=== PATIENT | male | born 1950 | race Caucasian/White ===

== ENCOUNTER 2017-01-29 06:27 | Emergency (ER) | payer BC, OTHER ==
[~2017-01-29] VITALS: Ht 188 cm; Wt 97.2 kg
[~2017-01-29 06:27] MED LIST: ADVIN10/60 INH; ALBU1AER9 INH; CZR50 PO; DICL1GEL28 TOP; DICL50TA3 PO; OMEP20TA74 PO; OXYC-57 PO; XRL20 PO
[2017-01-29 06:30] VITALS: Ht 188 cm; Wt 97.2 kg
[2017-01-29] MEDS ORDERED: METOCLOPRAMIDE HCL INJ 5 MG/ML 2 ML VIAL IV STA (06:39)
[2017-01-29] MEDS ORDERED: SODIUM CHLORIDE 0.9% 1000ML 1,000 ML IV STA (06:39)
[2017-01-29] MEDS ORDERED: HYDROmorphone INJ 0.5 MG/0.5 ML SYR IV STA (06:39)
--- NOTE | 2017-01-29 06:43 | EMERGENCY ROOM VISIT NOTE ---
History Report prepared by Stefani: Guillermo Ba Under the Supervision of: Dr. Kirk Webb M.D. First contact with patient: 06:33 Chief Complaint: GI ASSESSMENT Stated Complaint: COLON PROBLEMS History of Present Illness The patient is a 66 year old male who presents to the Emergency Room with complaints of persistent left lower quadrant abdominal pain. The pain is rated 5 /10 in severity, and radiates to the left testicle. The patient denies nausea or vomiting. He has been having problems with his bowels for the past 2-3 weeks , and notes that he has not had a bowel movement in 2-3 days. The patient was diagnosed with diverticulitis 4 years ago on colonoscopy. He notes that his symptoms now are similar to when he was diagnosed with diverticulitis. 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 Source of History: patient Onset: 2-3 weeks ago Position: abdomen (LLQ) Symptom Intensity: 5/10 Timing: other (persistent) Associated Symptoms: No nausea, No vomiting Review of Systems See HPI for pertinent positives & negatives. A total of 10 systems reviewed and were otherwise negative. Past Medical & Surgical Medical Problems: (1) Pulmonary emboli Surgical Problems: (1) History of back surgery Family History Hypertension Social History Smoking Status: Never Smoker Alcohol Use: none Drug Use: none Marital Status: Housing Status: lives with family Occupation Status: employed Current/Historical Medications Scheduled Albuterol Hfa (Ventolin Hfa), 1-2 PUFFS INH Q4-6H Aspirin (Aspirin Ec), 81 MG PO DAILY Atorvastatin (Lipitor), 40 MG PO HS Calcium Polycarbophil (Fibercon), Unknown Dose PO UD Diclofenac Sodium (Topical) (Voltaren 1% Top Gel), Unknown Dose TOP BID Fluticasone Prop/Salmeterol (Advair Diskus 100/50 60 Dose), 1 PUFF INH Q12 Losartan Potassium (Cozaar), 50 MG PO BID Omeprazole (Prilosec), 20 MG PO BID Scheduled PRN Oxycodone/Acetaminophen 5MG/325MG (Percocet 5MG/325MG), 1 TABLET PO BID PRN for Pain Allergies Coded Allergies: No Known Allergies (Verified , 01/29/17) Physical Exam Vital Signs Date Time Temp Pulse Resp B/P Pulse Ox O2 Delivery O2 Flow Rate FiO2 01/29/17 10:29 36.6 80 153/105 01/29/17 09:15 70 17 152/105 96 Room Air 01/29/17 08:15 67 17 153/96 100 Room Air 01/29/17 07:20 86 126/86 97 Room Air 01/29/17 07:14 63 01/29/17 06:30 37.1 75 16 159/108 98 Room Air Physical Exam GENERAL: Patient is a healthy-appearing well-nourished HEAD: Normocephalic atraumatic EYES: Ocular movements intact pupils equal and react to light OROPHARYNX mucous membranes are moist no exudates present no erythema or edema present NECK: Supple no nuchal rigidity CHEST: Good equal expansion LUNGS: Clear and equal to auscultation CARDIAC: Normal S1 and S2 ABDOMEN: Soft, mild left lower quadrant tenderness, no guarding. BACK: No CVA tenderness EXTREMITIES: No pain upon palpation normal muscle strength in all groups no clubbing cyanosis or edema NEURO: Patient is following commands is answering questions appropriately. Alert and oriented x3 Cranial Nerves 2-12 grossly intact Medical Decision & Procedures ER Provider Diagnostic Interpretation: CT results as stated below per my review and radiologist interpretation: CT ABD/PELVIS IV AND ORAL CONT CLINICAL HISTORY: Left lower quadrant abdominal pain COMPARISON STUDY: 10/27/2015 TECHNIQUE: Following the IV administration of 93 mL of Optiray-320, CT scan of the abdomen and pelvis was performed from the lung bases to the proximal femurs. Images are reviewed in the axial, sagittal, and coronal planes. IV contrast was administered without complication. CT DOSE: 696.18 mGy.cm FINDINGS: Lower chest: The heart is normal in size and configuration, without pericardial effusion. The lung bases and pleural spaces are clear. Liver: The contrast-enhanced liver is normal in size, contour, and attenuation. There is no intrahepatic biliary ductal dilatation. The hepatic veins and portal veins are patent. Gallbladder: Unremarkable. Spleen: Normal in size and attenuation. Pancreas: Unremarkable. Adrenal glands: Unremarkable. Kidneys: There is symmetric renal cortical enhancement. The kidneys are normal in size without hydronephrosis. Bowel: There is pancolonic diverticulosis. No acute peridiverticular inflammatory changes are visualized. There are no findings to indicate acute appendicitis. Peritoneum: There is no intraperitoneal free air or abdominal ascites. Vasculature: The abdominal aorta is normal in course and caliber. Adenopathy: None. Pelvic viscera: There are postsurgical changes are prior prostatectomy. Skeletal structures: Degenerative changes are present within the spine. There are multilevel disc bulges/protrusions. There is spinal stenosis most pronounced the L4-5 level. IMPRESSION: 1. No evidence of bowel obstruction. No evidence of free air 2. Diverticulosis. No evidence of acute diverticulitis 3. No evidence of acute appendicitis. Electronically signed by: Luis Bueno M.D. 01/29/2017 9:48 AM Dictated Date/Time: 01/29/2017 9:43 AM Laboratory Results 01/29/17 06:45 Red Blood Count 5.12, Mean Corpuscular Volume 88.3, Mean Corpuscular Hemoglobin 29.7, Mean Corpuscular Hemoglobin Concent 33.6, Mean Platelet Volume 9.4, Neutrophils (%) (Auto) 55.2, Lymphocytes (%) (Auto) 33.2, Monocytes (%) (Auto) 10.1, Eosinophils (%) (Auto) 1.0, Basophils (%) (Auto) 0.3, Neutrophils # (Auto ) 3.16, Lymphocytes # (Auto) 1.90, Monocytes # (Auto) 0.58, Eosinophils # (Auto ) 0.06, Basophils # (Auto) 0.02 01/29/17 06:45 Test 01/29/17 06:45 01/29/17 07:05 White Blood Count 5.73 K/uL (4.8-10.8) Red Blood Count 5.12 M/uL (4.7-6.1) Hemoglobin 15.2 g/dL (14.0-18.0) Hematocrit 45.2 % (42-52) Mean Corpuscular Volume 88.3 fL (80-100) Mean Corpuscular Hemoglobin 29.7 pg (25-34) Mean Corpuscular Hemoglobin Concent 33.6 g/dl (32-36) Platelet Count 301 K/uL (130-400) Mean Platelet Volume 9.4 fL (7.4-10.4) Neutrophils (%) (Auto) 55.2 % Lymphocytes (%) (Auto) 33.2 % Monocytes (%) (Auto) 10.1 % Eosinophils (%) (Auto) 1.0 % Basophils (%) (Auto) 0.3 % Neutrophils # (Auto) 3.16 K/uL (1.4-6.5) Lymphocytes # (Auto) 1.90 K/uL (1.2-3.4) Monocytes # (Auto) 0.58 K/uL (0.11-0.59) Eosinophils # (Auto) 0.06 K/uL (0-0.5) Basophils # (Auto) 0.02 K/uL (0-0.2) RDW Standard Deviation 46.0 fL (36.4-46.3) RDW Coefficient of Variation 14.1 % (11.5-14.5) Immature Granulocyte % (Auto) 0.2 % Immature Granulocyte # (Auto) 0.01 K/uL (0.00-0.02) Anion Gap 8.0 mmol/L (3-11) Est Creatinine Clear Calc Drug Dose 108.4 ml/min Estimated GFR () 109.2 Estimated GFR (Non- 94.2 BUN/Creatinine Ratio 16.3 (10-20) Calcium Level 8.8 mg/dl (8.5-10.1) Total Bilirubin 0.7 mg/dl (0.2-1) Direct Bilirubin 0.1 mg/dl (0-0.2) Aspartate Amino Transf (AST/SGOT) 19 U/L (15-37) Alanine Aminotransferase (ALT/SGPT) 25 U/L (12-78) Alkaline Phosphatase 94 U/L (45-117) Total Protein 7.4 gm/dl (6.4-8.2) Albumin 3.7 gm/dl (3.4-5.0) Lipase 129 U/L (73-393) Urine Color YELLOW Urine Appearance CLEAR (CLEAR) Urine pH 7.0 (4.5-7.5) Urine Specific Raymond 1.023 (1.000-1.030) Urine Protein NEG (NEG) Urine Glucose (UA) NEG (NEG) Urine Ketones NEG (NEG) Urine Occult Blood NEG (NEG) Urine Nitrite NEG (NEG) Urine Bilirubin NEG (NEG) Urine Urobilinogen NEG (NEG) Urine Leukocyte Esterase NEG (NEG) Labs reviewed by ED physician. Medications Administered Medications (Trade) Dose Ordered Sig/Julien Route Start Time Stop Time Status Last Admin Dose Admin Sodium Chloride (Nss 1000ml) 1,000 ml @ 999 mls/hr Q1H1M STAT IV 01/29/17 06:39 01/29/17 07:39 DC 3/21/17 06:45 999 MLS/HR Metoclopramide HCl (Reglan Inj) 10 mg NOW STAT IV 01/29/17 06:39 01/29/17 06:41 DC 01/29/17 06:45 10 MG Hydromorphone HCl (Dilaudid Inj) 0.5 mg NOW STAT IV 01/29/17 06:39 01/29/17 06:41 DC 01/29/17 06:45 0.5 MG ED Course 0635: Past medical records reviewed. The patient was evaluated in room B2. A complete history and physical examination was performed. 0639: Dilaudid 0.5 mg IV, Reglan 10 mg IV, NSS 1000 ml @ 999 mls/hr. 0756: Checked on the patient. He is doing well. 1025: Reassessed the patient. Discussed the findings with him. He verbalized understanding and agreement. The patient is ready for discharge. Medical Decision Differential diagnosis: Etiologies such as appendicitis, diverticulitis, PUD, biliary pathology, UTI, pancreatitis, obstruction, mesenteric ischemia, aortic pathology, infections, inflammatory bowel disease, renal colic, as well as others were entertained. This 66-year-old male who presents emergency department complaining of left lower quadrant abdominal pain. Patient has a normal CBC normal renal profile normal liver profile normal lipase. Serial abdominal examinations were performed on the patient in the emergency department and no tended patient exhibit a surgical abdomen. Using shared medical decision making, the patient requested a CAT scan of the abdomen and pelvis to rule out diverticulitis. There is no evidence of diverticulitis on his CAT scan. The patient is requesting medicine to help him move his bowels. I stressed MiraLAX as well as Gatorade. Patient is going to follow-up with his primary care physician and was in agreement with the treatment plan. He will return if he develops severe abdominal pain or fevers. In addition the patient was given bolus, Dilaudid and Reglan in the [facility] department repeat examination revealed improvement patient's symptoms. Impression Primary Impression: LLQ abdominal pain Scribe Attestation The scribe's documentation has been prepared under my direction and personally reviewed by me in its entirety. I confirm that the note above accurately reflects all work, treatment, procedures, and medical decision making performed by me. Departure Information Dispostion Home / Self-Care Referrals Griel,Jett C. III, YARD RIGGER (PCP) Forms HOME CARE DOCUMENTATION FORM, IMPORTANT VISIT INFORMATION, School Instructions, Work Instructions Patient Instructions ED Abd Pain Unkn Cause Male, ED Diverticulosis, My [facility] Additional Instructions Take 10 oz bottle of miralax; Add to 16 oz of gatorade Drink continuously until moving creamy stools Clear liquid diet for next 48 hours Return if you develop fevers or pain worsens You have been examined and treated today on an emergency basis only. This is not a substitute for, or an effort to provide, complete comprehensive medical care. It is impossible to recognize and treat all injuries or illnesses in a single emergency department visit. It is therefore important that you follow up closely with your PCP. Call as soon as possible for an appointment. Thank you for your time and consideration. I look forward to speaking with you again soon. Please don't hesitate to call us if you have any questions.
[2017-01-29 07:28] LABS: BASO % 0.3 %; BASO ABS # 0.02 K/uL (0-0.2); COMPLETE YES; HEMATOCRIT 45.2 % (42-52); IG% 0.2 %; LYMPH % 33.2 %; MEAN CELL VOLUME 88.3 fL (80-100); MEAN CORPUSCULAR HEMOGLOBIN 29.7 pg (25-34); MEAN CORPUSCULAR HGB CONC 33.6 g/dl (32-36); MEAN PLATELET VOLUME 9.4 fL (7.4-10.4); MONO % 10.1 %; NEUT % 55.2 %; PLATELET COUNT 301 K/uL (130-400); RED BLOOD COUNT 5.12 M/uL (4.7-6.1); WHITE BLOOD COUNT 5.73 K/uL (4.8-10.8)
[2017-01-29] MEDS ORDERED: PRLSR20 PO (07:34)
[2017-01-29] MEDS ORDERED: OXYC-57 PO (07:34)
[2017-01-29] MEDS ORDERED: VNTHFA/IN INH (07:34)
[2017-01-29] MEDS ORDERED: ASPI81TA28 PO (07:34)
[2017-01-29] MEDS ORDERED: DICL1GEL12 TOP (07:34)
[2017-01-29] MEDS ORDERED: CALC625T PO (07:34)
[2017-01-29] MEDS ORDERED: LOSA50TA6 PO (07:34)
[2017-01-29] MEDS ORDERED: ATOR-24 PO (07:34)
[2017-01-29] MEDS ORDERED: ADVIN10/60 INH (07:34)
[2017-01-29 07:44] LABS: URINE APPEARANCE CLEAR (CLEAR); URINE BILIRUBIN NEG (NEG); URINE COLOR YELLOW; URINE NITRITE NEG (NEG); URINE SPECIFIC GRAVITY 1.023 (1.000-1.030); UROBILINOGEN NEG (NEG)
[2017-01-29 07:51] LABS: MANUAL MICROSCOPIC REQUIRED? NO; REVIEW REQ? NO
[2017-01-29 07:53] LABS: BUN/CREATININE RATIO 16.3 (10-20); CALCIUM 8.8 mg/dl (8.5-10.1); CREATININE 0.79 mg/dl (0.60-1.40)
[2017-01-29 09:15] VITALS: O2SAT 96
[2017-01-29] MEDS ORDERED: OPTIRAY 320 IV PRN (09:45)
--- NOTE | 2017-01-29 09:49 | DIAGNOSTIC IMAGING REPORT ---
CT ABD/PELVIS IV AND ORAL CONT CLINICAL HISTORY: Left lower quadrant abdominal pain COMPARISON STUDY: 10/27/2015 TECHNIQUE: Following the IV administration of 93 mL of Optiray-320, CT scan of the abdomen and pelvis was performed from the lung bases to the proximal femurs. Images are reviewed in the axial, sagittal, and coronal planes. IV contrast was administered without complication. CT DOSE: 696.18 mGy.cm FINDINGS: Lower chest: The heart is normal in size and configuration, without pericardial effusion. The lung bases and pleural spaces are clear. Liver: The contrast-enhanced liver is normal in size, contour, and attenuation. There is no intrahepatic biliary ductal dilatation. The hepatic veins and portal veins are patent. Gallbladder: Unremarkable. Spleen: Normal in size and attenuation. Pancreas: Unremarkable. Adrenal glands: Unremarkable. Kidneys: There is symmetric renal cortical enhancement. The kidneys are normal in size without hydronephrosis. Bowel: There is pancolonic diverticulosis. No acute peridiverticular inflammatory changes are visualized. There are no findings to indicate acute appendicitis. Peritoneum: There is no intraperitoneal free air or abdominal ascites. Vasculature: The abdominal aorta is normal in course and caliber. Adenopathy: None. Pelvic viscera: There are postsurgical changes are prior prostatectomy. Skeletal structures: Degenerative changes are present within the spine. There are multilevel disc bulges/protrusions. There is spinal stenosis most pronounced the L4-5 level. IMPRESSION: 1. No evidence of bowel obstruction. No evidence of free air 2. Diverticulosis. No evidence of acute diverticulitis 3. No evidence of acute appendicitis. Electronically signed by: Luis Bueno M.D. 01/29/2017 9:48 AM Dictated Date/Time: 01/29/2017 9:43 AM
[2017-01-29 10:29] VITALS: BP 153/105; PULSE 80; TEMP 36.6
== END 2017-01-29 10:40 | disposition home or self-care (01) ==
LOC: C.EDB 06:28
DX: R10.32 Left lower quadrant pain (principal); Z79.82 Long term (current) use of aspirin; Z86.711 Personal history of pulmonary embolism; Z82.49 Family history of ischemic heart disease and other diseases of the circulatory system; K57.30 Diverticulosis of large intestine without perforation or abscess without bleeding

== ENCOUNTER → 2017-02-19 | Outpatient (CLI) | payer BC ==
[~2017-02-19] MED LIST changes: -ALBU1AER9 INH; +ASPI81TA28 PO; +ATOR-24 PO; +CALC625T PO; +CYCL5TAB PO; -CZR50 PO; +DICL1GEL12 TOP; -DICL1GEL28 TOP; -DICL50TA3 PO; +HYDR-5688 PO; +LOSA50TA6 PO; -OMEP20TA74 PO; +PRLSR20 PO; +VNTHFA/IN INH; -XRL20 PO
[2017-02-19 09:46] LABS: BASO % 0.5 %; BASO ABS # 0.03 K/uL (0-0.2); COMPLETE YES; EOS % 0.9 %; IG% 0.2 %; LYMPH % 40.6 %; LYMPH ABS # 2.32 K/uL (1.2-3.4); MEAN CELL VOLUME 86.1 fL (80-100); MEAN CORPUSCULAR HEMOGLOBIN 29.1 pg (25-34); MEAN CORPUSCULAR HGB CONC 33.8 g/dl (32-36); MONO % 6.1 %; NEUT % 51.7 %; PLATELET COUNT 374 K/uL (130-400); RED BLOOD COUNT 4.88 M/uL (4.7-6.1); WHITE BLOOD COUNT 5.71 K/uL (4.8-10.8)
[2017-02-19 10:01] LABS: ALT/SGPT 20 U/L (12-78); AST/SGOT 15 U/L (15-37); BLOOD UREA NITROGEN 15 mg/dl (7-18); BUN/CREATININE RATIO 17.2 (10-20); CALCIUM 8.6 mg/dl (8.5-10.1); CARBON DIOXIDE 27 mmol/L (21-32); CHLORIDE 107 mmol/L (98-107); CHOLESTEROL 122 mg/dl (0-200); CREATININE 0.87 mg/dl (0.60-1.40); GLUCOSE 95 mg/dl (70-99); SODIUM 141 mmol/L (136-145); TRIGLYCERIDES 64 mg/dl (0-150); VERY LOW DENSITY LIPOPROT CALC 13 mg/dl
[2017-02-19 10:04] LABS: ALB/GLOB RATIO 0.8 (0.9-2); ALKALINE PHOSPHATASE 90 U/L (45-117); CHOLESTEROL/HDL RATIO 2.3; HDL CHOLESTEROL 53 mg/dl; LDL CHOLESTEROL CALCULATED 56 mg/dl
== END | disposition home or self-care (01) ==
LOC: C.LAB1850 07:47
PROVIDERS: ATTEND Nurse Practitioner Family
DX: K21.9 Gastro-esophageal reflux disease without esophagitis (principal); I10 Essential (primary) hypertension; I65.29 Occlusion and stenosis of unspecified carotid artery

== ENCOUNTER 2017-05-07 11:42 | Emergency (ER) | payer BC ==
[~2017-05-07] VITALS: Ht 188 cm; Wt 94.3 kg
[~2017-05-07 11:42] MED LIST changes: -CYCL5TAB PO; -HYDR-5688 PO
[2017-05-07 11:49] VITALS: TEMP 36.8; Ht 188 cm; Wt 94.3 kg
[2017-05-07] MEDS ORDERED: ASPI81TA28 PO (12:35)
[2017-05-07 12:45] LABS: BASO % 0.3 %; BASO ABS # 0.02 K/uL (0-0.2); COMPLETE YES; EOS % 1.1 %; HEMATOCRIT 45.9 % (42-52); IG% 0.2 %; LYMPH % 32.8 %; LYMPH ABS # 2.16 K/uL (1.2-3.4); MEAN CELL VOLUME 88.8 fL (80-100); MEAN CORPUSCULAR HEMOGLOBIN 29.2 pg (25-34); MEAN CORPUSCULAR HGB CONC 32.9 g/dl (32-36); MEAN PLATELET VOLUME 9.2 fL (7.4-10.4); MONO % 8.5 %; NEUT % 57.1 %; PLATELET COUNT 315 K/uL (130-400); RED BLOOD COUNT 5.17 M/uL (4.7-6.1); WHITE BLOOD COUNT 6.59 K/uL (4.8-10.8)
[2017-05-07 12:57] LABS: ALT/SGPT 20 U/L (12-78); BLOOD UREA NITROGEN 19 mg/dl (7-18); BUN/CREATININE RATIO 20.5 (10-20); CALCIUM 8.6 mg/dl (8.5-10.1); CARBON DIOXIDE 27 mmol/L (21-32); CHLORIDE 108 mmol/L (98-107); CREATININE 0.93 mg/dl (0.60-1.40); GLUCOSE 101 mg/dl (70-99); POTASSIUM 4.9 mmol/L (3.5-5.1); SODIUM 141 mmol/L (136-145)
[2017-05-07 13:02] LABS: ALB/GLOB RATIO 0.9 (0.9-2); ALKALINE PHOSPHATASE 90 U/L (45-117); AST/SGOT 17 U/L (15-37); CKMB/CK RATIO 1.5 (0-3.0)
--- NOTE | 2017-05-07 13:16 | DIAGNOSTIC IMAGING REPORT ---
CHEST ONE VIEW PORTABLE HISTORY: EVALUATE RESPIRATORY DISTRESS.DYSPNEA COMPARISON: Chest 04/24/2016. FINDINGS: The lungs are clear. Cardiac silhouette is normal in size. No pleural effusions. No pneumothorax. IMPRESSION: No acute process. Electronically signed by: John Aponte M.D. 05/07/2017 1:15 PM Dictated Date/Time: 05/07/2017 1:14 PM
[2017-05-07] MEDS ORDERED: OPTIRAY 320 IV PRN (13:30)
--- NOTE | 2017-05-07 13:52 | DIAGNOSTIC IMAGING REPORT ---
CT ANGIOGRAM OF THE CHEST CLINICAL HISTORY: Cough and dyspnea. COMPARISON STUDY: Chest x-ray dated 05/07/2017. Chest CT scans dated 03/16/2016 and 02/01/2014. TECHNIQUE: Following the IV administration of 94 cc of Optiray 320, CT angiogram of the chest was performed from the upper abdomen to the thoracic inlet utilizing the pulmonary embolus protocol. Images are reviewed in the axial, sagittal, and coronal planes. 3-D MIPS images are created and assessed. IV contrast was administered without complication. CT DOSE: 577.51 mGycm FINDINGS: Thyroid: Imaged portions of the thyroid gland are normal in size and attenuation. Thoracic aorta: There is minimal atherosclerotic calcification of the thoracic aorta, which is normal in caliber and demonstrates standard 3-vessel arch anatomy. No dissection is seen. Pulmonary vasculature: The main pulmonary arteries are mildly dilated suggesting pulmonary artery hypertension. There are no filling defects identified in main, lobar, or segmental pulmonary branches to suggest pulmonary embolus. Heart: The heart is enlarged and without pericardial effusion. Lungs and pleural spaces: The lungs and pleural spaces are clear noting dependent atelectasis. The trachea and central airways are patent. Mediastinum: There is no mediastinal lymphadenopathy. Nenita: Clear. Axillae: There is no axillary lymphadenopathy. Upper abdomen: There is a small hiatal hernia. Partially visualized upper abdominal viscera is otherwise within normal limits. Skeletal structures: Skeletal structures are osteopenic. No lytic or blastic bony lesions are seen. Degenerative change is noted in the thoracic spine and shoulders. IMPRESSION: 1. There is no evidence of pulmonary embolus in the main, lobar, or segmental pulmonary arteries. 2. Cardiomegaly. 3. There is no airspace consolidation or pleural effusion. Electronically signed by: Vitor Ochoa M.D. 05/07/2017 1:51 PM Dictated Date/Time: 05/07/2017 1:46 PM
[2017-05-07 13:57] VITALS: BP 149/98; PULSE 71; O2SAT 98
--- NOTE | 2017-05-07 18:00 | EMERGENCY ROOM VISIT NOTE ---
History Report prepared by Stefani: Sherrie Salvador Under the Supervision of: Dr. Scott Melara M.D. First contact with patient: 11:53 Chief Complaint: COUGH Stated Complaint: CONSTANT COUGHING Nursing Triage Summary: Pt c/o coughing a lot for the last 2.5 week. Hx pneumonia and fluid in lungs due to a blood clot so he would like some xrays. Denies use of blood thinners. History of Present Illness The patient is a 66 year old male who presents to the Emergency Room with complaints of a constant cough beginning 2.5 weeks prior to arrival. He states that laying on his left side worsens the cough. The patient has a history of a pleural effusion from a blood clot and pneumonia about a year ago. He states that the fluid was drained from his left side. The cough he is experiencing is similar to when he had the pleural effusion. The patient is not on blood thinners. Pt denies LOC, headache, fevers, chills, diaphoresis, visual changes, neck pain, chest pain, breathing difficulties, pain with breathing, nausea, vomiting, abdominal pain, back pain, melena, hematochezia, urinary symptoms, numbness, weakness, lymphadenopathy, rash, recent surgeries or other complaints. 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 A total of ten systems were reviewed and were otherwise negative. Past Medical & Surgical Medical Problems: (1) Pleural effusion, left (2) Pneumonia (3) Pulmonary emboli Surgical Problems: (1) History of back surgery (2) S/P thoracentesis Family History Hypertension Social History Smoking Status: Never Smoker Alcohol Use: none Drug Use: none Marital Status: Housing Status: lives with family Occupation Status: employed Current/Historical Medications Scheduled Aspirin (Aspirin Ec), 81 MG PO DAILY Atorvastatin (Lipitor), 40 MG PO HS Losartan Potassium (Cozaar), 50 MG PO BID Omeprazole (Prilosec), 20 MG PO BID Scheduled PRN Oxycodone/Acetaminophen 5MG/325MG (Percocet 5MG/325MG), 1 TABLET PO BID PRN for Pain Allergies Coded Allergies: No Known Allergies (Verified , 05/07/17) Physical Exam Vital Signs Date Time Temp Pulse Resp B/P (MAP) Pulse Ox O2 Delivery O2 Flow Rate FiO2 05/07/17 13:57 71 20 149/98 98 Room Air 05/07/17 13:27 75 18 165/97 98 Room Air 05/07/17 12:32 72 05/07/17 11:52 96 Room Air 05/07/17 11:49 36.8 85 18 148/93 96 Room Air Physical Exam GENERAL: Awake, alert, well-appearing, in no distress HENT: Normocephalic, atraumatic. Oropharynx unremarkable. EYES: Normal conjunctiva. Sclera non-icteric. NECK: Supple. No nuchal rigidity. FROM. No JVD. RESPIRATORY: Clear to auscultation. CARDIAC: Regular rate, normal rhythm. Extremities warm and well perfused. Pulses equal. ABDOMEN: Soft, non-distended. No tenderness to palpation. No rebound or guarding. No masses. RECTAL: Deferred. MUSCULOSKELETAL: Chest examination reveals no tenderness. The back is symmetrical on inspection without obvious abnormality. There is no CVA tenderness to palpation. No joint edema. LOWER EXTREMITIES: Calves are equal size bilaterally and non-tender. No edema. No discoloration. NEURO: Normal sensorium. No sensory or motor deficits noted. SKIN: No rash or jaundice noted. Medical Decision & Procedures ER Provider Diagnostic Interpretation: X-ray: Per my interpretation, radiologist review. CHEST ONE VIEW PORTABLE HISTORY: EVALUATE RESPIRATORY DISTRESS.DYSPNEA COMPARISON: Chest 04/24/2016. FINDINGS: The lungs are clear. Cardiac silhouette is normal in size. No pleural effusions. No pneumothorax. IMPRESSION: No acute process. Electronically signed by: John Aponte M.D. 05/07/2017 1:15 PM Dictated Date/Time: 05/07/2017 1:14 PM Laboratory Results 05/07/17 12:14 Red Blood Count 5.17, Mean Corpuscular Volume 88.8, Mean Corpuscular Hemoglobin 29.2, Mean Corpuscular Hemoglobin Concent 32.9, Mean Platelet Volume 9.2, Neutrophils (%) (Auto) 57.1, Lymphocytes (%) (Auto) 32.8, Monocytes (%) (Auto) 8.5, Eosinophils (%) (Auto) 1.1, Basophils (%) (Auto) 0.3, Neutrophils # (Auto) 3.77, Lymphocytes # (Auto) 2.16, Monocytes # (Auto) 0.56, Eosinophils # (Auto) 0.07, Basophils # (Auto) 0.02 05/07/17 12:14 Test 05/07/17 12:14 05/07/17 12:25 White Blood Count 6.59 K/uL (4.8-10.8) Red Blood Count 5.17 M/uL (4.7-6.1) Hemoglobin 15.1 g/dL (14.0-18.0) Hematocrit 45.9 % (42-52) Mean Corpuscular Volume 88.8 fL (80-100) Mean Corpuscular Hemoglobin 29.2 pg (25-34) Mean Corpuscular Hemoglobin Concent 32.9 g/dl (32-36) Platelet Count 315 K/uL (130-400) Mean Platelet Volume 9.2 fL (7.4-10.4) Neutrophils (%) (Auto) 57.1 % Lymphocytes (%) (Auto) 32.8 % Monocytes (%) (Auto) 8.5 % Eosinophils (%) (Auto) 1.1 % Basophils (%) (Auto) 0.3 % Neutrophils # (Auto) 3.77 K/uL (1.4-6.5) Lymphocytes # (Auto) 2.16 K/uL (1.2-3.4) Monocytes # (Auto) 0.56 K/uL (0.11-0.59) Eosinophils # (Auto) 0.07 K/uL (0-0.5) Basophils # (Auto) 0.02 K/uL (0-0.2) RDW Standard Deviation 44.5 fL (36.4-46.3) RDW Coefficient of Variation 13.5 % (11.5-14.5) Immature Granulocyte % (Auto) 0.2 % Immature Granulocyte # (Auto) 0.01 K/uL (0.00-0.02) Anion Gap 6.0 mmol/L (3-11) Est Creatinine Clear Calc Drug Dose 92.1 ml/min Estimated GFR () 99.5 Estimated GFR (Non- 85.8 BUN/Creatinine Ratio 20.5 (10-20) Calcium Level 8.6 mg/dl (8.5-10.1) Total Bilirubin 0.3 mg/dl (0.2-1) Aspartate Amino Transf (AST/SGOT) 17 U/L (15-37) Alanine Aminotransferase (ALT/SGPT) 20 U/L (12-78) Alkaline Phosphatase 90 U/L (45-117) Total Creatine Kinase 97 U/L (39-308) Creatine Kinase MB 1.5 ng/ml (0.5-3.6) Creatine Kinase MB Ratio 1.5 (0-3.0) Troponin I < 0.015 ng/ml (0-0.045) Total Protein 7.3 gm/dl (6.4-8.2) Albumin 3.4 gm/dl (3.4-5.0) Globulin 3.9 gm/dl (2.5-4.0) Albumin/Globulin Ratio 0.9 (0.9-2) Bedside D-Dimer > 450 ng/mlFEU (0-450) Laboratory results reviewed by me ECG Indication: other (cough) Rate (beats per minute): 72 Rhythm: normal sinus Findings: no acute ischemic change, no ectopy, other (inferior Q wave, poor R wave progression ) ED Course 1159: The patient was evaluated in room B5. A complete history and physical exam was performed. 1326: I reevaluated the patient. 1418: I discussed test results with the patient. 1447: I reevaluated the patient. Discussed results and discharge instructions: He verbalized understanding and agreement. The patient is ready for discharge. Medical Decision Medication Reconciliation: I attest that I have personally reviewed the patient' s current medication list Blood pressure screening: Patient was found to have an elevated blood pressure and was referred to their primary doctor for recheck and further treatment. Triage Nursing notes reviewed. The patient's presentation and history were concerning for cough and pulmonary symptoms. Etiologies such as pneumonia, pleural effusion, COPD, reactive airway disease, CHF, cardiac ischemia, pulmonary embolism, pneumothorax, musculoskeletal, infections, gastrointestinal, as well as others were entertained. The patient was evaluated. Clinically he was doing well. His ECG was unremarkable. Chest x-ray did not reveal any acute findings. His CBC, chemistry panel, cardiac markers and LFTs were unremarkable. The patient had a positive d-dimer. Because of this and his history he was sent for CT imaging. This did not reveal any evidence of pulmonary embolism or pleural effusion. No significant abnormalities were noted. The patient is currently taken an ARB because his CARMEN inhibitor was causing a cough. The patient hasn't this seems to be more of a problem at night. He does not have any reflux-like symptoms. He has previously used an inhaler without success and has this at home. I advised him to use this to watch his symptoms closely. He will need of close outpatient follow-up with his primary office. The patient was in agreement. I asked if I could schedule his appointment however the patient wishes to do this on his own. By the evaluation outlined above other emergent etiologies such as those listed in the differential, as well as others, were deemed relatively unlikely. The patient was educated about the findings as listed above. All questions were answered and the patient was pleased with the treatment. Return instructions were outlined and the patient was discharged in stable condition. The patient was referred to his PCP this week for follow-up for a recheck of the current condition. Impression Primary Impression: Cough Additional Impression: History of pleural effusion Scribe Attestation The scribe's documentation has been prepared under my direction and personally reviewed by me in its entirety. I confirm that the note above accurately reflects all work, treatment, procedures, and medical decision making performed by me. Departure Information Dispostion Home / Self-Care Referrals No Doctor, Assigned (PCP) Forms HOME CARE DOCUMENTATION FORM, IMPORTANT VISIT INFORMATION Patient Instructions My [facility] Additional Instructions Continue current medications. Use your inhaler as discussed. Follow-up with the primary office. Call tomorrow to set up an appointment. Have your primary evaluate your blood pressure and blood pressure medications. Return to the ER for worsening cough, chest pain, difficulty breathing, fevers, vomiting, worsening of your condition, or as needed. Problem Qualifiers
[2017-08-19] MEDS ORDERED: OXYC-57 PO (11:42)
[2017-08-19] MEDS ORDERED: ADVIN10/60 INH (11:42)
== END 2017-05-07 14:51 | disposition home or self-care (01) ==
LOC: C.EDB 11:44
DX: R05 Cough (principal); Z86.711 Personal history of pulmonary embolism; Z98.890 Other specified postprocedural states; Z88.2 Allergy status to sulfonamides; Z79.899 Other long term (current) drug therapy; Z82.49 Family history of ischemic heart disease and other diseases of the circulatory system

== ENCOUNTER → 2017-08-26 | Day surgery (SDC) | payer BC ==
[2017-08-19 11:42] VITALS: Ht 188 cm; Wt 93.2 kg
[~2017-08-26] VITALS: Ht 188 cm; Wt 93.2 kg
[~2017-08-26] MED LIST changes: +ATROPINE SULFATE 0.1 MG/ML 5ML SYR IV PRN; -CALC625T PO; -DICL1GEL12 TOP; +EpHEDrine SULFATE INJ 50 MG/ML AMP IV PRN; +LIDOCAINE HCL 2% 2 ML VIAL (20MG/ML) ONE; +MIDAZOLAM HCL 1 MG/ML 2ML VIAL ONE; +ONDANSETRON INJ 2 MG/ML 2 ML VIAL ONE; +PROPOFOL IV EMULSION 10 MG/ML 20 ML VIAL IV ONE; +SODIUM CHLORIDE 0.9% 500ML 500 ML IV ONE; -VNTHFA/IN INH
--- NOTE | 2017-08-26 11:21 | Endo History and Physical ---
History & Physical Date of Service: Aug 26, 2017. Chief Complaint: GERD Referring Physician: MCKENNA DALLAS History of Present Illness 66 yo CM who presents for EGD secondary to GERD. Past Medical History Arthritis, Reflux, Hypertension Past Surgical History Hx Cardiac Surgery: No Hx Internal Defibrillator: No Hx Pacemaker: No Hx Abdominal Surgery: No Hx of Implantable Prosthesis: No Hx Post-Op Nausea and Vomiting: No Hx Cancer Surgery: Yes (TOTAL PROSTATECTOMY) Hx Thoracic Surgery: No Hx Orthopedic: Yes (RT RCR) Hx Urinary Tract Surgery: No Family History None Social History Smoking Status: Never Smoker Hx Substance Use: No Hx Alcohol Use: Yes (30 PACK/WEEK BEER) Allergies Coded Allergies: No Known Allergies (Verified , 08/19/17) Current Medications Reported Home Medications Medications Dose Route/Sig Max Daily Dose Days Date Category Dose Instructions Percocet 5MG/325MG (Oxycodone/Acetaminophen) Tab 1 Tablet PO BID PRN 08/19/17 Reported PAIN Advair Diskus 100/50 60 Dose (Fluticasone Prop/Salmeterol) 1 Ea Aerp 1 Puff INH BID PRN 08/19/17 Reported Aspirin Ec (Aspirin) 81 Mg Tab 81 Mg PO QAM 01/29/17 Reported Prilosec (Omeprazole) 20 Mg Capcr 20 Mg PO BID 01/29/17 Reported Cozaar (Losartan Potassium) 50 Mg Tab 50 Mg PO BID 01/29/17 Reported Lipitor (Atorvastatin Calcium) 40 Mg Tab 40 Mg PO HS 01/29/17 Reported Vital Signs Weight (Kilograms): 93.18 Height (Feet): 6 Height (Inches): 2 Date Time Temp Pulse Resp B/P (MAP) Pulse Ox O2 Delivery O2 Flow Rate FiO2 08/26/17 10:58 36.4 67 12 142/86 (104) 98 Room Air Physical Exam General Appearance: WD/WN, no apparent distress Respiratory/Chest: Auscultation: breath sounds normal Cardiovascular: Heart Auscultation: RRR Abdomen: Bowel Sounds: normal Inspection & Palpation: soft, non-distended, no tenderness, guarding & rebound Assessment and Plan Assessment: 66 yo CM who presents for EGD secondary to GERD. Plan: Proceed with EGD.
--- NOTE | 2017-08-26 12:06 | GI REPORT ---
Procedure Date: 08/26/2017 11:29 AM Procedure: Upper GI endoscopy Indications: Gastro-esophageal reflux disease Medicines: Monitored Anesthesia Care Complications: No immediate complications. Estimated Blood Loss: Estimated blood loss: none. Procedure: Pre-Anesthesia Assessment: - Prior to the procedure, a History and Physical was performed, and patient medications and allergies were reviewed. The patient's tolerance of previous anesthesia was also reviewed. The risks and benefits of the procedure and the sedation options and risks were discussed with the patient. All questions were answered, and informed consent was obtained. Prior Anticoagulants: The patient has taken aspirin, last dose was 1 day prior to procedure. ASA Grade Assessment: II - A patient with mild systemic disease. After reviewing the risks and benefits, the patient was deemed in satisfactory condition to undergo the procedure. After obtaining informed consent, the endoscope was passed under direct vision. Throughout the procedure, the patient's blood pressure, pulse, and oxygen saturations were monitored continuously. The On-site loaner was introduced through the mouth, and advanced to the second part of duodenum. The upper GI endoscopy was accomplished without difficulty. The patient tolerated the procedure well. Findings: The Z-line was irregular. Biopsies were taken with a cold forceps for histology. A small hiatus hernia was present. The examined duodenum was normal. Impression: - Z-line irregular. Biopsied. - Small hiatus hernia. - Normal examined duodenum. Recommendation: - Resume previous diet. - Continue present medications. - Await pathology results. - Return to primary care physician as previously scheduled. Justin Vargas DO 08/26/2017 12:06:13 PM This report has been signed electronically. Note Initiated On: 08/26/2017 11:29 AM I attest to the content of the Intraoperative Record and orders documented therein, exceptions below
--- NOTE | 2017-08-26 12:10 | Discharge Instructions ---
Endoscopy Patient Instructions Date / Procedure(s) Performed Aug 26, 2017. EGD Allergy Information Coded Allergies: No Known Allergies (Verified , 08/19/17) Discharge Date / Findings Aug 26, 2017. Distal esophageal biopsies Hiatal hernia Medication Instructions Stopped Medication(s): ASPIRIN 81MG 08/25/17 OK to resume all medications today as prescribed Reported Home Medications Medications Dose Route/Sig Max Daily Dose Days Date Category Dose Instructions Percocet 5MG/325MG (Oxycodone/Acetaminophen) Tab 1 Tablet PO BID PRN 08/19/17 Reported PAIN Advair Diskus 100/50 60 Dose (Fluticasone Prop/Salmeterol) 1 Ea Aerp 1 Puff INH BID PRN 08/19/17 Reported Aspirin Ec (Aspirin) 81 Mg Tab 81 Mg PO QAM 01/29/17 Reported Prilosec (Omeprazole) 20 Mg Capcr 20 Mg PO BID 01/29/17 Reported Cozaar (Losartan Potassium) 50 Mg Tab 50 Mg PO BID 01/29/17 Reported Lipitor (Atorvastatin Calcium) 40 Mg Tab 40 Mg PO HS 01/29/17 Reported Provider Instructions Activity Restrictions - No exercising or heavy lifting for 24 hours. - Do not drink alcohol the day of the procedure. - Do not drive a car or operate machinery until the day after the procedure. - Do not make any important decisions or sign important papers in 24 hours after the procedure. Following Day: - Return to full activity which may include returning to work/school. Diet Start your diet with liquids and light foods (jello, soup, juice, toast). Then eat your usual diet if not nauseated. Treatment For Common After Affects For mild abdominal pain, bloating, or excessive gas: - Rest - Eat lightly - Lie on right side Follow-Up Information Follow-up with MCKENNA DALLAS as scheduled Anesthesia Information What You Should Know You have had a procedure that required some medicine to reduce anxiety and discomfort. This treatment is called moderate sedation. After receiving the treatment, you may be sleepy, but you will be able to breathe on your own. The effects of the treatment may last for several hours. Follow these instructions along with Activity/Diet recommendations noted above: * Do NOT do anything where dizziness or clumsiness would be dangerous. * Rest quietly at home today, then you can be up and about tomorrow. * Have a responsible person stay with you the rest of today. * You may have had an I.V. today. If so, you may take the dressing off later today. Recommendations Call your doctor if: * Trouble breathing * Continuous vomiting for more than 24 hours * Temperature above 101 degrees * Severe abdominal pain or bloating * Pain not relieved by pain medicine ordered * There is increased drainage or redness from any incision * A large amount of rectal bleeding greater than 2-3 tablespoons. (If you had a polyp/s removed or have hemorrhoids, a small amount of blood - from the rectum is to be expected.) * You have any unanswered questions or concerns. IN THE EVENT OF A SERIOUS EMERGENCY, GO TO THE NEAREST EMERGENCY ROOM Your discharge instructions were prepared by provider Justin Vargas. Patient Instructions Signature Page Gopal Aponte Patient (or Guardian) Signature/Date: I have read and understand the instructions given to me by my caregivers. Caregiver/RN/Doctor Signature/Date: The above-named patient and/or guardian has received patient instructions on this date. + Original Patient Signature Page (only) stays with chart. Please make copy for patient.
--- NOTE | 2017-08-26 12:21 | Anesthesiology Progress Note ---
Anesthesia Post Op Note Date & Time Aug 26, 2017 at 12:21 Vital Signs Pain Intensity: 0 Vital Signs Past 12 Hours Date Time Temp Pulse Resp B/P (MAP) Pulse Ox O2 Delivery O2 Flow Rate FiO2 08/26/17 12:18 78 20 142/90 (107) 98 Room Air 08/26/17 12:02 67 12 134/88 (103) 98 Room Air 08/26/17 10:58 36.4 67 12 142/86 (104) 98 Room Air Notes Mental Status: alert / awake / arousable, participated in evaluation Pt Amnestic to Procedure: Yes Nausea / Vomiting: adequately controlled Pain: adequately controlled Airway Patency, RR, SpO2: stable & adequate BP & HR: stable & adequate Hydration State: stable & adequate Anesthetic Complications: no major complications apparent
[2017-08-26 12:33] VITALS: BP 148/78; PULSE 72; O2SAT 98
== END | disposition home or self-care (01) ==
LOC: C.GI 10:43
PROVIDERS: ATTEND Internal Medicine
DX: K21.9 Gastro-esophageal reflux disease without esophagitis (principal); K31.89 Other diseases of stomach and duodenum; K44.9 Diaphragmatic hernia without obstruction or gangrene; I10 Essential (primary) hypertension; Z86.718 Personal history of other venous thrombosis and embolism; Z68.26 Body mass index [BMI] 26.0-26.9, adult; Z90.89 Acquired absence of other organs; Z98.890 Other specified postprocedural states; Z79.82 Long term (current) use of aspirin

== ENCOUNTER 2017-09-01 07:39 | Emergency (ER) | payer BC ==
[~2017-09-01] VITALS: Ht 185.4 cm; Wt 93.6 kg
[~2017-09-01 07:39] MED LIST changes: -ATROPINE SULFATE 0.1 MG/ML 5ML SYR IV PRN; -EpHEDrine SULFATE INJ 50 MG/ML AMP IV PRN; -LIDOCAINE HCL 2% 2 ML VIAL (20MG/ML) ONE; -MIDAZOLAM HCL 1 MG/ML 2ML VIAL ONE; -ONDANSETRON INJ 2 MG/ML 2 ML VIAL ONE; -PROPOFOL IV EMULSION 10 MG/ML 20 ML VIAL IV ONE; -SODIUM CHLORIDE 0.9% 500ML 500 ML IV ONE
[2017-09-01 07:45] VITALS: TEMP 36.9; Ht 185.4 cm; Wt 93.6 kg
--- NOTE | 2017-09-01 08:16 | EMERGENCY ROOM VISIT NOTE ---
History Report prepared by Stefani: Winston Marie Under the Supervision of: Dr. Pam Bonilla M.D. First contact with patient: 07:50 Chief Complaint: TESTICULAR PAIN Stated Complaint: PAIN IN LEFT LEG AND TESTICLE History of Present Illness The patient is a 66 year old male who presents to the Emergency Room with complaints of constant severe left testicular pain beginning a few days ago. The patient states that he is also experiencing pain at the joint between his hip and the inside of his left leg. He notes that he is unable to walk or raise his leg without pain. He denies any blood in his urine, fever, abdominal pain, or bumps, redness, and swelling to his testicle. The patient states that he has not experienced any recent injury to the testicle but has a history of prostate cancer. He notes that his prostate cancer was removed and that it did not metastasize. He reports that he also has a history of a hernia. Source of History: patient Onset: a few days ago Position: other (left testicle) Symptom Intensity: severe Timing: constant Modifying Factors (Worsening): movement Associated Symptoms: No fevers, No abdominal pain, No urinary symptoms Note: he denies any bumps, redness, and swelling to the left testicle Review of Systems See HPI for pertinent positives & negatives. A total of 10 systems reviewed and were otherwise negative. Past Medical & Surgical Medical Problems: (1) Pleural effusion, left (2) Pneumonia (3) Pulmonary emboli Surgical Problems: (1) History of back surgery (2) S/P thoracentesis Family History Hypertension Social History Smoking Status: Never Smoker Alcohol Use: none Drug Use: none Marital Status: Housing Status: lives with family Occupation Status: employed Current/Historical Medications Scheduled Aspirin (Aspirin Ec), 81 MG PO QAM Atorvastatin (Lipitor), 40 MG PO HS Losartan Potassium (Cozaar), 50 MG PO BID Omeprazole (Prilosec), 20 MG PO BID Scheduled PRN Cyclobenzaprine Hcl (Flexeril), 5 MG PO TID PRN for Muscle Spasms Fluticasone Prop/Salmeterol (Advair Diskus 100/50 60 Dose), 1 PUFF INH BID PRN for Shortness of Breath Hydrocodone/Acetaminophen 5MG/325MG (Wise 5MG/325MG), 1 TABLET PO Q6 PRN for Pain Oxycodone/Acetaminophen 5MG/325MG (Percocet 5MG/325MG), 1 TABLET PO BID PRN for Pain Allergies Coded Allergies: No Known Allergies (Verified , 09/01/17) Physical Exam Vital Signs Date Time Temp Pulse Resp B/P (MAP) Pulse Ox O2 Delivery O2 Flow Rate FiO2 09/01/17 09:45 70 20 140/90 98 Room Air 09/01/17 07:45 36.9 76 20 133/86 99 Room Air Physical Exam Vital signs reviewed. General: Well-appearing, in no significant distress. HEENT: No scleral icterus, PERRLA, neck supple. Atraumatic. Cardiovascular: Regular rate and rhythm, no extra sounds. Pulmonary: Clear to auscultation bilaterally, normal work of breathing. Abdomen: Soft, nontender, nondistended, positive bowel sounds. Musculoskeletal: Atraumatic, no peripheral edema, tenderness to palpation to left inguinal region, pain with straight leg raise. : No tenderness to palpation to testicle, no swelling of scrotum, circumcised. Neurologic: Patient awake alert and oriented x 3 Skin: Warm, dry, no rash Medical Decision & Procedures ER Provider Diagnostic Interpretation: Radiology results as stated below per my review and radiologist interpretation: L HIP UNILATERAL 2 VIEWS DISCUSSION: There are mild osteoarthritic changes present. No acute fractures are visualized. No blastic lesions are evident. Surgical clips are present within the pelvis. Subtle lucencies within the subtrochanteric femur, likely related to focal osteoporosis. IMPRESSION: 1. No acute fractures 2. Mild osteoarthritic changes 3. No blastic lesions identified Electronically signed by: Luis Bueno M.D. 09/01/2017 8:49 AM TESTICULAR ULTRASOUND FINDINGS: The right testis measures 50 x 20 x 33 mm. The left testis measures 47 x 23 x 32 mm. No intratesticular masses are visualized. There is no evidence of testicular torsion. There are tiny bilateral epididymal cysts. There is minimal bilateral scrotal fluid. IMPRESSION: 1. No evidence of intratesticular mass 2. No evidence of testicular torsion Electronically signed by: Luis Bueno M.D. 09/01/2017 9:02 AM Laboratory Results 09/01/17 08:25 Red Blood Count 5.09, Mean Corpuscular Volume 86.2, Mean Corpuscular Hemoglobin 29.7, Mean Corpuscular Hemoglobin Concent 34.4, Mean Platelet Volume 9.1, Neutrophils (%) (Auto) 68.5, Lymphocytes (%) (Auto) 23.1, Monocytes (%) (Auto) 6.6, Eosinophils (%) (Auto) 1.1, Basophils (%) (Auto) 0.5, Neutrophils # (Auto) 4.33, Lymphocytes # (Auto) 1.46, Monocytes # (Auto) 0.42, Eosinophils # (Auto) 0.07, Basophils # (Auto) 0.03 09/01/17 08:25 Test 09/01/17 08:25 White Blood Count 6.32 K/uL (4.8-10.8) Red Blood Count 5.09 M/uL (4.7-6.1) Hemoglobin 15.1 g/dL (14.0-18.0) Hematocrit 43.9 % (42-52) Mean Corpuscular Volume 86.2 fL (80-100) Mean Corpuscular Hemoglobin 29.7 pg (25-34) Mean Corpuscular Hemoglobin Concent 34.4 g/dl (32-36) Platelet Count 281 K/uL (130-400) Mean Platelet Volume 9.1 fL (7.4-10.4) Neutrophils (%) (Auto) 68.5 % Lymphocytes (%) (Auto) 23.1 % Monocytes (%) (Auto) 6.6 % Eosinophils (%) (Auto) 1.1 % Basophils (%) (Auto) 0.5 % Neutrophils # (Auto) 4.33 K/uL (1.4-6.5) Lymphocytes # (Auto) 1.46 K/uL (1.2-3.4) Monocytes # (Auto) 0.42 K/uL (0.11-0.59) Eosinophils # (Auto) 0.07 K/uL (0-0.5) Basophils # (Auto) 0.03 K/uL (0-0.2) RDW Standard Deviation 42.9 fL (36.4-46.3) RDW Coefficient of Variation 13.5 % (11.5-14.5) Immature Granulocyte % (Auto) 0.2 % Immature Granulocyte # (Auto) 0.01 K/uL (0.00-0.02) Anion Gap 9.0 mmol/L (3-11) Est Creatinine Clear Calc Drug Dose 96.8 ml/min Estimated GFR () 105.5 Estimated GFR (Non- 91.0 BUN/Creatinine Ratio 12.6 (10-20) Calcium Level 8.6 mg/dl (8.5-10.1) Magnesium Level 2.1 mg/dl (1.8-2.4) Total Bilirubin 0.4 mg/dl (0.2-1) Direct Bilirubin < 0.1 mg/dl (0-0.2) Aspartate Amino Transf (AST/SGOT) 18 U/L (15-37) Alanine Aminotransferase (ALT/SGPT) 19 U/L (12-78) Alkaline Phosphatase 78 U/L (45-117) Total Protein 7.3 gm/dl (6.4-8.2) Albumin 3.4 gm/dl (3.4-5.0) Laboratory results per my review. Medications Administered Medications (Trade) Dose Ordered Sig/Julien Route Start Time Stop Time Status Last Admin Dose Admin Cyclobenzaprine HCl (Flexeril Tab) 10 mg NOW STAT PO 09/01/17 09:35 09/01/17 09:36 DC 09/01/17 09:57 10 MG Acetaminophen/ Hydrocodone Bitart (Wise 5/325 Tab) 1 tab NOW STAT PO 09/01/17 09:35 09/01/17 09:36 DC 09/01/17 09:57 1 TAB Ketorolac Tromethamine (Toradol Inj) 30 mg NOW STAT IV 09/01/17 09:35 09/01/17 09:36 DC 09/01/17 09:57 30 MG ED Course 0805: Past medical records reviewed. The patient was evaluated in room A11. A complete history and physical examination was performed. 0940: I reevaluated and updated the patient. 1014: Upon reevaluation, the patient appeared to have improvement of his symptoms. I discussed findings with him. He verbalized agreement of the treatment plan. The patient was discharged home. Medical Decision Differentials include: muscular strain, hip fracture, pelvis fracture, dislocation, bony metastasis, kidney stone, UTI. This pt was evaluated and appeared to be in no distress. He was point tender over the L quadriceps origin medially. There was no appreciable swelling or tenderness to the testicle. US of testicle was ordered as this is an area of pain, it was negative. XR is negative of the L hip. Pt was advised of the findings. He was given flexeril, norco and toradol. He was given an Rx for flexeril and norco. He will f/u with his CP for reevaluation and further management. Blood Pressure Screening Patient's blood pressure: Elevated blood pressure Blood pressure disposition: Elevated BP felt to be situational Impression Primary Impression: Strain of left inguinal muscle Scribe Attestation The scribe's documentation has been prepared under my direction and personally reviewed by me in its entirety. I confirm that the note above accurately reflects all work, treatment, procedures, and medical decision making performed by me. Departure Information Dispostion Home / Self-Care Prescriptions Hydrocodone/Acetaminophen 5MG/325MG (Wise 5MG/325MG) Tab 1 TABLET PO Q6 Y for Pain, #14 TAB Prov: Pam Bonilla M.D. 09/01/17 Cyclobenzaprine Hcl (FLEXERIL) 5 Mg Tab 5 MG PO TID Y for Muscle Spasms, #21 TAB Prov: Pam Bonilla M.D. 09/01/17 Referrals No Doctor, Assigned (PCP) Forms HOME CARE DOCUMENTATION FORM, IMPORTANT VISIT INFORMATION, WORK / SCHOOL INSTRUCTIONS Patient Instructions My [facility] Additional Instructions Diagnosis: Left inguinal strain Ibuprofen 600 mg every 6 hours as needed for pain with food. Flexeril 5 mg 3 times daily as needed for spasm. Wise one tablet every 6 hours as needed for severe pain. Do not drive or take Tylenol with this medication. Follow-up with your physician this week for reevaluation. Return to the ER for worsening of symptoms or any medical concerns.
[2017-09-01 08:31] LABS: BASO % 0.5 %; BASO ABS # 0.03 K/uL (0-0.2); COMPLETE YES; EOS % 1.1 %; HEMATOCRIT 43.9 % (42-52); IG% 0.2 %; LYMPH % 23.1 %; LYMPH ABS # 1.46 K/uL (1.2-3.4); MEAN CELL VOLUME 86.2 fL (80-100); MEAN CORPUSCULAR HEMOGLOBIN 29.7 pg (25-34); MEAN CORPUSCULAR HGB CONC 34.4 g/dl (32-36); MEAN PLATELET VOLUME 9.1 fL (7.4-10.4); MONO % 6.6 %; NEUT % 68.5 %; PLATELET COUNT 281 K/uL (130-400); RED BLOOD COUNT 5.09 M/uL (4.7-6.1); WHITE BLOOD COUNT 6.32 K/uL (4.8-10.8)
--- NOTE | 2017-09-01 08:50 | DIAGNOSTIC IMAGING REPORT ---
L HIP UNILATERAL 2 VIEWS CLINICAL HISTORY: Left hip pain. History of prostate carcinoma COMPARISON: None. DISCUSSION: There are mild osteoarthritic changes present. No acute fractures are visualized. No blastic lesions are evident. Surgical clips are present within the pelvis. Subtle lucencies within the subtrochanteric femur, likely related to focal osteoporosis. IMPRESSION: 1. No acute fractures 2. Mild osteoarthritic changes 3. No blastic lesions identified Electronically signed by: Luis Bueno M.D. 09/01/2017 8:49 AM Dictated Date/Time: 09/01/2017 8:47 AM
[2017-09-01 08:52] LABS: ALT/SGPT 19 U/L (12-78); BLOOD UREA NITROGEN 11 mg/dl (7-18); BUN/CREATININE RATIO 12.6 (10-20); CALCIUM 8.6 mg/dl (8.5-10.1); CARBON DIOXIDE 28 mmol/L (21-32); CHLORIDE 104 mmol/L (98-107); CREATININE 0.86 mg/dl (0.60-1.40); GLUCOSE 101 mg/dl (70-99); MAGNESIUM 2.1 mg/dl (1.8-2.4); POTASSIUM 3.4 mmol/L (3.5-5.1); SODIUM 141 mmol/L (136-145)
[2017-09-01 08:55] LABS: ALKALINE PHOSPHATASE 78 U/L (45-117); AST/SGOT 18 U/L (15-37)
--- NOTE | 2017-09-01 09:03 | DIAGNOSTIC IMAGING REPORT ---
TESTICULAR ULTRASOUND CLINICAL HISTORY: Left testicular pain COMPARISON STUDY: 10/27/2015 FINDINGS: The right testis measures 50 x 20 x 33 mm. The left testis measures 47 x 23 x 32 mm. No intratesticular masses are visualized. There is no evidence of testicular torsion. There are tiny bilateral epididymal cysts. There is minimal bilateral scrotal fluid. IMPRESSION: 1. No evidence of intratesticular mass 2. No evidence of testicular torsion Electronically signed by: Luis Bueno M.D. 09/01/2017 9:02 AM Dictated Date/Time: 09/01/2017 9:01 AM
[2017-09-01] MEDS ORDERED: CYCLOBENZAPRINE HCL 10 MG TAB PO STA (09:35)
[2017-09-01] MEDS ORDERED: HYDROCODONE/ACETAMOPHEN 5/325MG TAB PO STA (09:35)
[2017-09-01] MEDS ORDERED: KETOROLAC TROMETHAMINE 30 MG/ML VIAL IV STA (09:35)
[2017-09-01] MEDS ORDERED: CYCL5TAB PO (09:42)
[2017-09-01] MEDS ORDERED: HYDR-5688 PO (09:42)
[2017-09-01 09:45] VITALS: BP 140/90; PULSE 70; O2SAT 98
== END 2017-09-01 10:12 | disposition home or self-care (01) ==
LOC: C.EDB 07:41 → C.EDA 10:12
DX: S76.812A Strain of other specified muscles, fascia and tendons at thigh level, left thigh, initial encounter (principal); X58.XXXA Exposure to other specified factors, initial encounter; Z85.46 Personal history of malignant neoplasm of prostate; Z87.01 Personal history of pneumonia (recurrent); Z86.711 Personal history of pulmonary embolism; Z82.49 Family history of ischemic heart disease and other diseases of the circulatory system; Z79.82 Long term (current) use of aspirin; Z79.899 Other long term (current) drug therapy

== ENCOUNTER → 2017-10-29 | Outpatient (CLI) | payer BC ==
[~2017-10-29] MED LIST changes: +HYDR-5688 PO
[2017-10-29 09:40] LABS: BASO % 0.3 %; BASO ABS # 0.02 K/uL (0-0.2); COMPLETE YES; EOS % 1.5 %; HEMATOCRIT 45.3 % (42-52); IG% 0.1 %; LYMPH % 23.6 %; LYMPH ABS # 1.61 K/uL (1.2-3.4); MEAN CORPUSCULAR HEMOGLOBIN 29.5 pg (25-34); MEAN CORPUSCULAR HGB CONC 33.1 g/dl (32-36); MEAN PLATELET VOLUME 9.8 fL (7.4-10.4); MONO % 10.4 %; NEUT % 64.1 %; PLATELET COUNT 297 K/uL (130-400); RED BLOOD COUNT 5.09 M/uL (4.7-6.1); WHITE BLOOD COUNT 6.82 K/uL (4.8-10.8)
[2017-10-29 09:57] LABS: URINE APPEARANCE CLEAR (CLEAR); URINE BILIRUBIN NEG (NEG); URINE COLOR YELLOW; URINE NITRITE NEG (NEG); URINE SPECIFIC GRAVITY 1.016 (1.000-1.030); UROBILINOGEN NEG (NEG); ZZUR CULT IF INDIC CLEAN CATCH NO
[2017-10-29 10:03] LABS: MANUAL MICROSCOPIC REQUIRED? NO; REVIEW REQ? NO
[2017-10-29 10:21] LABS: ALT/SGPT 22 U/L (12-78); BLOOD UREA NITROGEN 17 mg/dl (7-18); BUN/CREATININE RATIO 17.1 (10-20); CALCIUM 8.8 mg/dl (8.5-10.1); CARBON DIOXIDE 28 mmol/L (21-32); CHLORIDE 103 mmol/L (98-107); CREATININE 0.99 mg/dl (0.60-1.40); GLUCOSE 102 mg/dl (70-99); POTASSIUM 3.6 mmol/L (3.5-5.1); SODIUM 138 mmol/L (136-145)
[2017-10-29 10:26] LABS: ALB/GLOB RATIO 0.9 (0.9-2); ALKALINE PHOSPHATASE 69 U/L (45-117); AST/SGOT 19 U/L (15-37); PROSTATE SPECIFIC ANTIGEN < 0.010 ng/ml (0.000-4.000)
== END | disposition home or self-care (01) ==
LOC: C.LAB1850 08:26
PROVIDERS: ATTEND Nurse Practitioner Family
DX: R35.0 Frequency of micturition (principal)

== ENCOUNTER → 2017-11-21 | Day surgery (SDC) | payer BC ==
[2017-10-31 08:03] VITALS: Ht 188 cm; Wt 95.0 kg
[~2017-11-21] VITALS: Ht 188 cm; Wt 95.0 kg
[~2017-11-21] MED LIST changes: -HYDR-5688 PO; +LIDOCAINE HCL 2% 2 ML VIAL (20MG/ML) ONE; +PROPOFOL IV EMULSION 10 MG/ML 20 ML VIAL IV ONE; +SODIUM CHLORIDE 0.9% 500ML 500 ML IV ONE
--- NOTE | 2017-11-21 13:29 | Endo History and Physical ---
History & Physical Date of Service: Nov 21, 2017. Chief Complaint: History of colon polyps Referring Physician: Jett Ahn History of Present Illness 67 yo CM who presents for colonoscopy secondary to history of colon polyps. Past Medical History Arthritis, Reflux, Hypertension Past Surgical History Hx Cardiac Surgery: No Hx Internal Defibrillator: No Hx Pacemaker: No Hx Abdominal Surgery: No Hx Post-Op Nausea and Vomiting: No Hx Cancer Surgery: Yes (TOTAL PROSTATECTOMY) Hx Thoracic Surgery: No Hx Orthopedic: Yes (RT RCR) Hx Urinary Tract Surgery: No Family History None Social History Smoking Status: Never Smoker Hx Substance Use: No Hx Alcohol Use: Yes (30 PACK/WEEK BEER) Allergies Coded Allergies: No Known Allergies (Verified , 10/31/17) Current Medications Reported Home Medications Medications Dose Route/Sig Max Daily Dose Days Date Category Dose Instructions Percocet 5MG/325MG (Oxycodone/Acetaminophen) Tab 1 Tablet PO BID PRN 08/19/17 Reported PAIN Advair Diskus 100/50 60 Dose (Fluticasone Prop/Salmeterol) 1 Ea Aerp 1 Puff INH BID PRN 08/19/17 Reported Aspirin Ec (Aspirin) 81 Mg Tab 81 Mg PO QAM 01/29/17 Reported Prilosec (Omeprazole) 20 Mg Capcr 20 Mg PO BID 01/29/17 Reported Cozaar (Losartan Potassium) 50 Mg Tab 50 Mg PO BID 01/29/17 Reported Lipitor (Atorvastatin Calcium) 40 Mg Tab 40 Mg PO HS 01/29/17 Reported Vital Signs Weight (Kilograms): 95 Height (Feet): 6 Height (Inches): 2 Physical Exam General Appearance: WD/WN, no apparent distress Respiratory/Chest: Auscultation: breath sounds normal Cardiovascular: Heart Auscultation: RRR Abdomen: Bowel Sounds: normal Inspection & Palpation: soft, non-distended, no tenderness, guarding & rebound Assessment and Plan Assessment: 67 yo CM who presents for colonoscopy secondary to history of colon polyps. Plan: Proceed with colonoscopy.
--- NOTE | 2017-11-21 14:46 | Discharge Instructions ---
Endoscopy Patient Instructions Date / Procedure(s) Performed Nov 21, 2017. Colonoscopy Allergy Information Coded Allergies: No Known Allergies (Verified , 10/31/17) Discharge Date / Findings Nov 21, 2017. Colon polyp Diverticulosis Internal hemorrhoids Medication Instructions OK to resume all medications today as prescribed Reported Home Medications Medications Dose Route/Sig Max Daily Dose Days Date Category Dose Instructions Percocet 5MG/325MG (Oxycodone/Acetaminophen) Tab 1 Tablet PO BID PRN 08/19/17 Reported PAIN Advair Diskus 100/50 60 Dose (Fluticasone Prop/Salmeterol) 1 Ea Aerp 1 Puff INH BID PRN 08/19/17 Reported Aspirin Ec (Aspirin) 81 Mg Tab 81 Mg PO QAM 01/29/17 Reported Prilosec (Omeprazole) 20 Mg Capcr 20 Mg PO BID 01/29/17 Reported Cozaar (Losartan Potassium) 50 Mg Tab 50 Mg PO BID 01/29/17 Reported Lipitor (Atorvastatin Calcium) 40 Mg Tab 40 Mg PO HS 01/29/17 Reported Provider Instructions Activity Restrictions - No exercising or heavy lifting for 24 hours. - Do not drink alcohol the day of the procedure. - Do not drive a car or operate machinery until the day after the procedure. - Do not make any important decisions or sign important papers in 24 hours after the procedure. Following Day: - Return to full activity which may include returning to work/school. Diet Start your diet with liquids and light foods (jello, soup, juice, toast). Then eat your usual diet if not nauseated. Treatment For Common After Affects For mild abdominal pain, bloating, or excessive gas: - Rest - Eat lightly - Lie on right side Follow-Up Information Follow-up with Jett Ahn as scheduled Anesthesia Information What You Should Know You have had a procedure that required some medicine to reduce anxiety and discomfort. This treatment is called moderate sedation. After receiving the treatment, you may be sleepy, but you will be able to breathe on your own. The effects of the treatment may last for several hours. Follow these instructions along with Activity/Diet recommendations noted above: * Do NOT do anything where dizziness or clumsiness would be dangerous. * Rest quietly at home today, then you can be up and about tomorrow. * Have a responsible person stay with you the rest of today. * You may have had an I.V. today. If so, you may take the dressing off later today. Recommendations Call your doctor if: * Trouble breathing * Continuous vomiting for more than 24 hours * Temperature above 101 degrees * Severe abdominal pain or bloating * Pain not relieved by pain medicine ordered * There is increased drainage or redness from any incision * A large amount of rectal bleeding greater than 2-3 tablespoons. (If you had a polyp/s removed or have hemorrhoids, a small amount of blood - from the rectum is to be expected.) * You have any unanswered questions or concerns. IN THE EVENT OF A SERIOUS EMERGENCY, GO TO THE NEAREST EMERGENCY ROOM Your discharge instructions were prepared by provider Justin Vargas. Patient Instructions Signature Page Gopal Aponte Patient (or Guardian) Signature/Date: I have read and understand the instructions given to me by my caregivers. Caregiver/RN/Doctor Signature/Date: The above-named patient and/or guardian has received patient instructions on this date. + Original Patient Signature Page (only) stays with chart. Please make copy for patient.
--- NOTE | 2017-11-21 14:49 | Anesthesiology Progress Note ---
Anesthesia Post Op Note Date & Time Nov 21, 2017 at 14:49 Vital Signs Pain Intensity: 0 Vital Signs Past 12 Hours Date Time Temp Pulse Resp B/P (MAP) Pulse Ox O2 Delivery O2 Flow Rate FiO2 11/21/17 14:36 89 16 100/77 (85) 95 Room Air 11/21/17 13:31 37 90 18 127/77 (94) 99 Room Air Notes Mental Status: alert / awake / arousable, participated in evaluation Pt Amnestic to Procedure: Yes Nausea / Vomiting: adequately controlled Pain: adequately controlled Airway Patency, RR, SpO2: stable & adequate BP & HR: stable & adequate Hydration State: stable & adequate Anesthetic Complications: no major complications apparent
--- NOTE | 2017-11-21 14:51 | GI REPORT ---
Procedure Date: 11/21/2017 2:03 PM Procedure: Colonoscopy Indications: High risk colon cancer surveillance: Personal history of colonic polyps Medicines: Monitored Anesthesia Care Complications: No immediate complications. Estimated Blood Loss: Estimated blood loss: none. Procedure: Pre-Anesthesia Assessment: - Prior to the procedure, a History and Physical was performed, and patient medications and allergies were reviewed. The patient's tolerance of previous anesthesia was also reviewed. The risks and benefits of the procedure and the sedation options and risks were discussed with the patient. All questions were answered, and informed consent was obtained. Prior Anticoagulants: The patient has taken aspirin, last dose was day of procedure. ASA Grade Assessment: II - A patient with mild systemic disease. After reviewing the risks and benefits, the patient was deemed in satisfactory condition to undergo the procedure. After I obtained informed consent, the scope was passed under direct vision. Throughout the procedure, the patient's blood pressure, pulse, and oxygen saturations were monitored continuously. The scope was introduced through the anus and advanced to the terminal ileum. The colonoscopy was performed without difficulty. The patient tolerated the procedure well. The quality of the bowel preparation was good. The terminal ileum, ileocecal valve, appendiceal orifice, and rectum were photographed. Findings: A 5 mm polyp was found in the ascending colon. The polyp was sessile. The polyp was removed with a hot snare. Resection and retrieval were complete. Multiple small-mouthed diverticula were found in the sigmoid colon. Non-bleeding internal hemorrhoids were found during retroflexion. The hemorrhoids were small. Impression: - One 5 mm polyp in the ascending colon, removed with a hot snare. Resected and retrieved. - Diverticulosis in the sigmoid colon. - Non-bleeding internal hemorrhoids. Recommendation: - Resume previous diet. - Continue present medications. - Repeat colonoscopy for surveillance based on pathology results. - Return to primary care physician as previously scheduled. Justin Vargas, DO 11/21/2017 2:51:06 PM This report has been signed electronically. Note Initiated On: 11/21/2017 2:03 PM I attest to the content of the Intraoperative Record and orders documented therein, exceptions below
[2017-11-21 15:06] VITALS: BP 138/95; PULSE 75; O2SAT 99
== END | disposition home or self-care (01) ==
LOC: C.GI 13:09
PROVIDERS: ATTEND Internal Medicine
DX: Z12.11 Encounter for screening for malignant neoplasm of colon (principal); Z86.010 Personal history of colon polyps; D12.2 Benign neoplasm of ascending colon; K57.30 Diverticulosis of large intestine without perforation or abscess without bleeding; K64.8 Other hemorrhoids; I10 Essential (primary) hypertension; E78.5 Hyperlipidemia, unspecified; K21.9 Gastro-esophageal reflux disease without esophagitis; J45.909 Unspecified asthma, uncomplicated; M19.90 Unspecified osteoarthritis, unspecified site; Z79.82 Long term (current) use of aspirin; Z79.899 Other long term (current) drug therapy; Z86.711 Personal history of pulmonary embolism; Z85.46 Personal history of malignant neoplasm of prostate

== ENCOUNTER → 2018-03-06 | Outpatient (CLI) | payer BC ==
[~2018-03-06] MED LIST changes: -LIDOCAINE HCL 2% 2 ML VIAL (20MG/ML) ONE; -PROPOFOL IV EMULSION 10 MG/ML 20 ML VIAL IV ONE; -SODIUM CHLORIDE 0.9% 500ML 500 ML IV ONE
[2018-03-06 09:34] LABS: BASO % 0.3 %; BASO ABS # 0.02 K/uL (0-0.2); EOS ABS # 0.06 K/uL (0-0.5); HEMATOCRIT 44.5 % (42-52); IG# 0.01 K/uL (0.00-0.02); LYMPH % 37.2 %; LYMPH ABS # 2.28 K/uL (1.2-3.4); MEAN CELL VOLUME 88.3 fL (80-100); MEAN CORPUSCULAR HEMOGLOBIN 29.8 pg (25-34); MEAN CORPUSCULAR HGB CONC 33.7 g/dl (32-36); MEAN PLATELET VOLUME 8.8 fL (7.4-10.4); MONO % 8.5 %; MONO ABS # 0.52 K/uL (0.11-0.59); NEUT % 52.8 %; NEUT ABS # 3.24 K/uL (1.4-6.5); PLATELET COUNT 288 K/uL (130-400); RED CELL DISTRIBUTION WIDTH CV 13.5 % (11.5-14.5); RED CELL DISTRIBUTION WIDTH SD 43.3 fL (36.4-46.3); WHITE BLOOD COUNT 6.13 K/uL (4.8-10.8)
[2018-03-06 09:58] LABS: ALBUMIN 3.6 gm/dl (3.4-5.0); ALT/SGPT 23 U/L (12-78); AST/SGOT 15 U/L (15-37); BLOOD UREA NITROGEN 14 mg/dl (7-18); CALCIUM 8.7 mg/dl (8.5-10.1); CARBON DIOXIDE 29 mmol/L (21-32); CREATININE 0.95 mg/dl (0.60-1.40); GLUCOSE 99 mg/dl (70-99); POTASSIUM 3.9 mmol/L (3.5-5.1); SODIUM 137 mmol/L (136-145)
[2018-03-06 10:18] LABS: ALKALINE PHOSPHATASE 70 U/L (45-117); CHOLESTEROL 131 mg/dl (0-200); LDL CHOLESTEROL CALCULATED 61 mg/dl; TOTAL PROTEIN 7.5 gm/dl (6.4-8.2)
== END | disposition home or self-care (01) ==
LOC: C.LAB1850 08:18
PROVIDERS: ATTEND Nurse Practitioner Family
DX: I10 Essential (primary) hypertension (principal); Z85.46 Personal history of malignant neoplasm of prostate; M25.511 Pain in right shoulder; I65.29 Occlusion and stenosis of unspecified carotid artery